=== PATIENT | female | born 1935 | race Caucasian/White ===

== ENCOUNTER 2016-12-17 14:33 | Emergency (ER) | payer MEDICARE, BC ==
[~2016-12-17 14:33] MED LIST: ASA CHILDREN'S81 MG PO; DELTASONE DPS5 MG PO; DIFLUCAN DPS150 MG PO; DULCOLAX-DPS10 MG PR; DULERA 200/58.8 GM IH; DUONEB DPS3 ML IH; KLOR-CON M2020 ME1 PO; LASIX DPS20 MG PO; LEVAQUIN DPS500 MG PO; LOPID DPS600 MG PO; MAALOX DPS30 ML PO; MAG-OX400 MG PO; NITROSTAT0.4 MG SL; NORVASC DPS10 MG PO; NOVOLOG100 UNIT/2 SQ; PEPCID DPS20 MG PO; PROVENTIL HFA6.7 GM IH; PULMICORT0.25 MG/1 IH; PULMICORT0.5 MG/21 IH; SURFAK DPS240 MG PO; TENORMIN DPS50 MG PO; TYLENOL DPS325 MG PO; VASOTEC DPS10 MG PO; VASOTEC DPS20 MG PO; XOPENEX1.25 MG/3 IH; ZITHROMAX500 MG PO; ZOFRAN8 MG PO
--- NOTE | 2016-12-18 17:36 | ER ---
ADMIT: 12/17/2016 RM/LOC: ER [facility] MR#: [id number] [address] [address] EVANGELINA [place] [address] Emergency Room Report SEX: F AGE: 81 : 1935 DATE: 12/17/2016 For chief complaint, history of present illness, past medical history, medications, allergies, review of systems, including physical exam, please see my T-sheet. INTERIM HISTORY: The patient is an 81-year-old white female, who presents to the emergency room with wrist pain. She reports that it is uncertain whether or not how it happened that she fell, maybe tripped over some oxygen tubing in her room. Denies any additional injuries. This was not a witnessed fall by staff members. She is complaining of wrist pain. They brought her in for evaluation. PHYSICAL EXAMINATION: She does have moderate swelling of the wrist. There is no evidence of break in the skin. There is some moderate angulation suspicious for fracture. X-rays are obtained, which show a slightly posterior angulated fracture of the distal radius and ulnar. The patient was placed in a short-arm OCL for management. IMPRESSION: Fracture to the left wrist, involving the radius and the ulnar with no additional reduction. PLAN: [facility]. She was given a sling for support, ice to the wrist as needed for pain. Following up with Dr. Carson in 2-3 weeks if symptoms or problems persist or worsen. The patient is in stable condition at discharge. ELA Rosen / Parish Najera MD / conchita JOB #: [id number] CC: Parish Najera MD, Attending Physician UNKNOWN, Family Physician
[2016-12-28] MEDS ORDERED: ASA CHILDREN'S81 MG PO (06:43)
[2016-12-28] MEDS ORDERED: LEVAQUIN DPS500 MG PO (06:44)
[2016-12-28] MEDS ORDERED: LOPRESSOR DPS100 MG PO (06:44)
[2016-12-28] MEDS ORDERED: MAXZIDE-25 DPS1 TAB PO (06:45)
[2016-12-28] MEDS ORDERED: SENOKOT S1 TAB PO (06:46)
[2016-12-28] MEDS ORDERED: DULERA 200/58.8 GM IH (06:47)
[2016-12-28] MEDS ORDERED: LOVENOX DP40 MG/0.4 SQ (06:48)
[2016-12-28] MEDS ORDERED: BENADRYL-DPS25 MG PO (06:48)
[2016-12-28] MEDS ORDERED: GLUTOSE 1537.5 GM PO ×2 (06:49→06:50)
[2016-12-28] MEDS ORDERED: COMPAZINE DPS5 MG PO (06:49)
[2016-12-28] MEDS ORDERED: HYDROCODONE 7.7.5 MG PO (06:50)
[2016-12-28] MEDS ORDERED: MILK OF MAGNESI10 ML PO (06:51)
[2016-12-28] MEDS ORDERED: PROVENTIL2.5 MG/3 M IH (06:54)
[2016-12-28] MEDS ORDERED: GLUCAGON1 MG/ML IM (06:54)
[2016-12-28] MEDS ORDERED: ENEMA READY TO133 ML PR (06:55)
[2016-12-28] MEDS ORDERED: NITROSTAT0.4 MG SL (06:56)
== END 2016-12-17 16:45 | disposition home or self-care (01) ==
LOC: ER 14:33
DX: S52.612A Displaced fracture of left ulna styloid process, initial encounter for closed fracture (principal); S52.592A Other fractures of lower end of left radius, initial encounter for closed fracture; I10 Essential (primary) hypertension; Z87.891 Personal history of nicotine dependence; Z79.4 Long term (current) use of insulin; Z79.899 Other long term (current) drug therapy; W18.09XA Striking against other object with subsequent fall, initial encounter; Y92.009 Unspecified place in unspecified non-institutional (private) residence as the place of occurrence of the external cause

== ENCOUNTER → 2016-12-31 | Outpatient (CLI) | payer OTHER, MEDICARE, BC ==
[~2016-12-31] MED LIST changes: +BENADRYL-DPS25 MG PO; +COMPAZINE DPS5 MG PO; +ENEMA READY TO133 ML PR; +GLUCAGON1 MG/ML IM; +GLUTOSE 1537.5 GM PO; +HYDROCODONE 7.7.5 MG PO; +LOPRESSOR DPS100 MG PO; +LOVENOX DP40 MG/0.4 SQ; +MAXZIDE-25 DPS1 TAB PO; +MILK OF MAGNESI10 ML PO; +PROVENTIL2.5 MG/3 M IH; +SENOKOT S1 TAB PO
== END | disposition home or self-care (01) ==
LOC: RAD.S 13:00
DX: J44.1 Chronic obstructive pulmonary disease with (acute) exacerbation (principal); J43.9 Emphysema, unspecified; J98.4 Other disorders of lung

== ENCOUNTER → 2017-01-08 | Outpatient (CLI) | payer OTHER, MEDICARE, BC | END | disposition home or self-care (01) | LOC: RAD.S 12-20 13:00 → RESC 12-20 13:00 → PTH.S 12-20 13:00 → RESC 08:49 | DX: J44.9 Chronic obstructive pulmonary disease, unspecified (principal); R09.02 Hypoxemia ==

== ENCOUNTER 2017-08-04 12:25 | Emergency (ER) | payer MEDICARE, BC ==
--- NOTE | 2017-08-06 13:33 | ER ---
ADMIT: 08/04/2017 RM/LOC: [facility] MR#: [id number] [facility]#: [id number] [address] [address] [place] [address] Emergency Room Report SEX: F AGE: 82 : 1935 DATE: 08/04/2017 CHIEF COMPLAINT: "I do not know why I am here." HISTORY OF PRESENT ILLNESS: An 82-year-old female, presents to the ED for evaluation with reported complaints of chest pain and shortness of breath. I did speak with the medical transcription editor at [facility] today, who states the patient fell last night, since then she has been complaining of some anterior chest pain. Reports to halfway that she has been increasingly short of breath. They took her oxygen sats today, they were 88%. She chronically wears 2 L, they did not have to increase this. The patient herself has no complaints. She is not sure why she is here. She does have a dementia diagnosis. She is somewhat confused. Further reports that she has had multiple falls in the last few weeks. No report of any fevers, chills, nausea, vomiting, or problems with stools. She is chronically short of breath as she has a COPD diagnosis. She quit smoking approximately 6 years ago per her report. She has a cough, however, this is not increased from her baseline, it is not productive. PAST MEDICAL HISTORY: Coronary artery disease, heart failure, type 2 diabetes, hyperlipidemia, COPD, chronic kidney disease, osteoporosis. PAST SURGICAL HISTORY: Left hip fracture with repair, radial ulnar fracture repair. ALLERGIES: KEFLEX AND CODEINE. SOCIAL HISTORY: She is a resident at [facility]. She reports that she quit smoking 6 years ago after a storied history of smoking. PHYSICAL EXAMINATION: GENERAL: She is in no acute distress. She is alert. HEENT: Normocephalic and atraumatic. There is no pharyngeal erythema. She has moist mucous membranes. NECK: Soft and supple. No lymphadenopathy. CHEST: She has decreased air movement throughout. Some wheezes in the bases, however, no crackles or rhonchi. HEART: Regular. No murmurs. She has no tenderness to the anterior chest wall. There is no obvious ecchymosis. There is no crepitus of the ribs. ABDOMEN: Soft. SKIN: Warm and dry. EXTREMITIES: Nontender. No pedal edema. NEURO: She is alert. She is somewhat disoriented to place, time, and situation. Motor is intact. She moves all 4 extremities. She is otherwise appropriate. Chest x-ray shows chronic emphysematous changes. There is no infiltrate, over read by Dr. Coy. LABORATORY STUDIES: White count 11,000, hemoglobin 11.4, hematocrit 34.4, platelets 380. Sodium 134, BUN 20, creatinine 0.8. Troponin was less than 0.015. UA unremarkable. EKG shows normal sinus rhythm, no ST or Q-wave ADMIT: 08/04/2017 RM/LOC: ER [facility] MR#: [id number] [facility] [address] [address] [place] [address] Emergency Room Report SEX: F AGE: 82 : 1935 abnormalities. CLINICAL IMPRESSION: 1. Chronic obstructive pulmonary disease without exacerbation. 2. Dementia. 3. History of falls. 4. DNR. 5. Chronic kidney disease. 6. Anemia. DISPOSITION: She was discharged back to [facility]. Continue medications and orders. Follow up with Dr. Carson as needed. Discharged home in stable condition. ELA Robles / Myron Coy MD / modl JOB #: [id number] CC: Ambrocio Mccartney MD, Attending Physician Sergio Carson MD, Family Physician
== END 2017-08-04 14:55 | disposition home or self-care (01) ==
LOC: ER 12:25
DX: J44.9 Chronic obstructive pulmonary disease, unspecified (principal); F03.90 Unspecified dementia, unspecified severity, without behavioral disturbance, psychotic disturbance, mood disturbance, and anxiety; D64.9 Anemia, unspecified; I13.0 Hypertensive heart and chronic kidney disease with heart failure and stage 1 through stage 4 chronic kidney disease, or unspecified chronic kidney disease; E11.22 Type 2 diabetes mellitus with diabetic chronic kidney disease; N18.9 Chronic kidney disease, unspecified; I50.9 Heart failure, unspecified; Z88.8 Allergy status to other drugs, medicaments and biological substances; Z88.5 Allergy status to narcotic agent; Z87.891 Personal history of nicotine dependence; M81.0 Age-related osteoporosis without current pathological fracture